=== PATIENT | female | born 1970 | race Caucasian/White ===

== ENCOUNTER 2018-12-29 18:24 | Emergency (ER) | payer BC, OTHER ==
--- NOTE | 2018-12-29 20:49 | ED ---
Lower Extremity - HPI Summary HPI Summary: Patient complains of right ankle pain status post mechanical fall today. Patient is ambulatory. Denies any other pain injury or symptoms. - History of Current Complaint Chief Complaint: EDExtremityLower Stated Complaint: HURT RT ANKLE PER PT Time Seen by Provider: 12/29/18 20:04 Hx Obtained From: Patient Mechanism Of Injury: Twisted Onset of Pain: Immediate Onset/Duration: Hours Severity Initially: Moderate Severity Currently: Moderate Pain Intensity: 5 Pain Scale Used: 0-10 Numeric Timing: Constant Location: Is Discrete @ Character Of Pain: Aching, Throbbing Associated Signs And Symptoms: Positive: Swelling Aggravating Factor(s): Weight Bearing Alleviating Factor(s): Rest, Elevation Able to Bear Weight: Yes - Allergies/Home Medications Allergies/Adverse Reactions: Allergies Allergy/AdvReac Type Severity Reaction Status Date / Time MS Penicillins [Penicillins] Allergy Rash Verified 09/26/16 12:15 PMH/Surg Hx/FS Hx/Imm Hx Endocrine/Hematology History: Denies: Hx Anticoagulant Therapy Cardiovascular History: Denies: Hx Pacemaker/ICD History: Denies: Hx Dialysis Sensory History: Denies: Hx Legally Blind Opthamlomology History: Denies: Hx Eye Prosthesis EENT History: Denies: Hx Deafness Neurological History: Denies: Hx Developmental Delay Infectious Disease History: No Infectious Disease History: Denies: Traveled Outside the [place] in Last 30 Days - Family History Known Family History: Positive: Non-Contributory - Social History Alcohol Use: None Substance Use Type: Reports: None Smoking Status (MU): Never Smoked Tobacco Review of Systems Constitutional: Negative Eyes: Negative ENT: Negative Cardiovascular: Negative Respiratory: Negative Gastrointestinal: Negative Genitourinary: Negative Musculoskeletal: Other Skin: Negative Neurological: Negative Psychological: Normal All Other Systems Reviewed And Are Negative: Yes Physical Exam - Summary Physical Exam Summary: Very minimal swelling to right ankle just distal to the lateral malleolus. No ecchymosis, erythema, deformity noted to right ankle and foot. Nontender. PMS intact distally. No pain with palpation of right foot. Triage Information Reviewed: Yes Vital Signs On Initial Exam: Initial Vitals Temp Pulse Resp BP Pulse Ox 98.2 F 80 16 119/79 98 12/29/18 18:31 12/29/18 18:31 12/29/18 18:31 12/29/18 18:31 12/29/18 18:31 Vital Signs Reviewed: Yes Appearance: Positive: Well-Appearing Skin: Positive: Warm Head/Face: Positive: Normal Head/Face Inspection Eyes: Positive: Normal Neck: Positive: Supple Respiratory/Lung Sounds: Positive: Clear to Auscultation Cardiovascular: Positive: Normal Abdomen Description: Positive: Nontender Musculoskeletal: Positive: Normal Neurological: Positive: Normal Psychiatric: Positive: Normal AVPU Assessment: Alert - Portal Coma Scale Best Eye Response: 4 - Spontaneous Best Motor Response: 6 - Obeys Commands Best Verbal Response: 5 - Oriented Coma Scale Total: 15 Diagnostics - Vital Signs Vital Signs Temp Pulse Resp BP Pulse Ox 12/29/18 18:31 98.2 F 80 16 119/79 98 - Laboratory Lab Statement: Any lab studies that have been ordered have been reviewed, and results considered in the medical decision making process. Lower Extremity Course/Dx - Course Course Of Treatment: Patient complains of right ankle pain status post mechanical fall today. Patient is ambulatory. Denies any other pain injury or symptoms. Vital signs within normal limits. X-ray of right ankle and right foot negative for fracture. Gel ankle splint administered by nurse. Patient ambulatory with brace. - Diagnoses Provider Diagnoses: Ankle sprain Discharge - Sign-Out/Discharge Documenting (check all that apply): Patient Departure Patient Received Moderate/Deep Sedation with Procedure: No - Discharge Plan Condition: Stable Disposition: HOME Patient Education Materials: Ankle Sprain (ED), Ankle Stirrup Splint (ED) Referrals: Armand Mcnulty MD [Primary Care Provider] - Additional Instructions: Ice, rest and ibuprofen for ankle pain. Weightbearing as tolerated. Use ankle brace to help support ankle while healing. If symptoms persist more than a week follow-up with orthopedics Dr. Kay for further evaluation. - Billing Disposition and Condition Condition: STABLE Disposition: Home
[2018-12-29 21:04] VITALS: BP 101/66
== END 2018-12-29 21:03 | disposition home or self-care (01) ==
LOC: ED 18:24
DX: S93.401A Sprain of unspecified ligament of right ankle, initial encounter (principal); X50.1XXA Overexertion from prolonged static or awkward postures, initial encounter; Y92.9 Unspecified place or not applicable; Z88.0 Allergy status to penicillin
CPT/HCPCS: 99282

== ENCOUNTER 2024-05-09 11:34 | Observation (INO) ==
[2024-05-09] MEDS: LACTATED RINGERS IV ONE (11:40)
[2024-05-09 12:10] LABS: ABS Basophils 0.1 10^3/uL (0.0-0.1); ABS Monocytes 0.8 10^3/uL (0.0-0.9); ABS Neutrophils 7.4 10^3/uL (1.5-7.6); ABS Nucleated RBC 0.01 10^3/ul; Eosinophil % 0.1 %; Hematocrit 41.9 % (35-45); Hemoglobin 14.3 g/dL (11.5-14.3); Lymphocyte % 19.4 %; Mean Corpuscular Hemoglobin 29.6 pg (27-33); Mean Corpuscular Hgb Conc 34.2 g/dL (31-36); Mean Corpuscular Volume 86.7 fL (80-97); Mean Platelet Volume 7.9 fL (7.5-11.2); Nucleated Red Blood Cells % 0.1 %/100WBC (0.0-0.8); Platelet Count 274 10^3/uL (150-450); Red Blood Count 4.83 10^6/uL (3.63-4.92); Red Cell Distribution Width 13.6 % (12-17); White Blood Count 10.3 10^3/uL (3.8-11.8)
[2024-05-09 12:22] LABS: Activated Partial Thrombo Time 26.5 seconds (26.0-38.0); INR 1.07 (0.85-1.14)
[2024-05-09 12:29] LABS: Albumin 4.2 g/dL (3.2-5.2); Albumin/Globulin Ratio 1.4 (1-3); C Reactive Protein 94.59 mg/L (<8.01); Calcium 9.4 mg/dL (8.6-10.3); Creatinine, Serum 1.02 mg/dL (0.51-0.95); Potassium 3.6 mmol/L (3.5-5.0); Total Bilirubin 1.2 mg/dL (0.2-1.0); Total Protein 7.2 g/dL (6.4-8.9); eGFR CKD-EPI 65.4 (>60)
[2024-05-09] MEDS: Ondansetron 4 mg VIAL 2 MG/ML 2 ml VIAL IV ONE (12:31)
[2024-05-09] MEDS: Acetaminophen IV 1 GM/100ML 1,000 MG/100 ML BAG IV ONE (12:31)
[2024-05-09 13:19] LABS: Urine Appearance Clear; Urine Bilirubin Negative (Negative); Urine Blood 2+ (Negative); Urine Color Yellow; Urine Glucose Negative (Negative); Urine Ketones 3+ (Negative); Urine Nitrite Negative (Negative); Urine Protein 1+ (>=30 mg/dL) (Negative); Urine Specific Gravity 1.018 (1.002-1.030); Urine Urobilinogen Negative (Negative); Urine pH 8.5 (5.0-8.0)
[2024-05-09 13:25] LABS: Urine Bacteria Absent /HPF (Absent); Urine Red Blood Cell 3+(>10/hpf) /HPF (0-Trace); Urine Squamous Epithelial Cell Present /HPF (Absent); Urine Transitional Epithelial Present /HPF (Absent); Urine White Blood Cell 3+(>20/hpf) /HPF (0-Trace)
[2024-05-09 13:42] LABS: High Sensitivity Troponin 1 Hr < 3 pg/mL (<15)
[2024-05-09] MEDS: Ciprofloxacin 400mg IVPREMIX 400 MG/200 ML BAG IVPB ONE (14:13)
[2024-05-09] MEDS: DOXYcycline 100 MG in NS 0.9% 250 ml 250 ML IVPB ONE (15:55)
[2024-05-09] MEDS ORDERED: Ondansetron 4 mg VIAL 2 MG/ML 2 ml VIAL IV PRN (17:10)
[2024-05-09 18:05] LABS: Magnesium 1.9 mg/dL (1.9-2.7)
[2024-05-09] MEDS: Lactated Ringers 1000 ml BAG 1,000 ML IV SCH (18:18)
[2024-05-09] MEDS: Enoxaparin 40 MG/0.4 ML SYR SUBCUT SCH (18:19)
[2024-05-09] MEDS: DOXYcycline 100 MG in NS 0.9% 250 ml 250 ML IVPB SCH (18:25)
[2024-05-10] MEDS ORDERED: Ciprofloxacin 400mg IVPREMIX 400 MG/200 ML BAG IVPB SCH ×2 (02:00→04:00)
[2024-05-10] MEDS: Ciprofloxacin 400mg IVPREMIX 400 MG/200 ML BAG IVPB SCH (02:13)
[2024-05-10] MEDS: DOXYcycline 100 MG in NS 0.9% 250 ml 250 ML IVPB SCH (03:29)
[2024-05-10] MEDS: Lactated Ringers 1000 ml BAG 1,000 ML IV SCH (05:53)
[2024-05-10 06:00] LABS: Hematocrit 28.8 % (35-45); Mean Corpuscular Hgb Conc 34.8 g/dL (31-36); Mean Corpuscular Volume 86.4 fL (80-97); Mean Platelet Volume 8.3 fL (7.5-11.2); Platelet Count 147 10^3/uL (150-450); Red Blood Count 3.34 10^6/uL (3.63-4.92); Red Cell Distribution Width 13.1 % (12-17); White Blood Count 6.4 10^3/uL (3.8-11.8)
[2024-05-10 06:19] LABS: Albumin/Globulin Ratio 1.4 (1-3); Calcium 7.7 mg/dL (8.6-10.3); Creatinine, Serum 0.76 mg/dL (0.51-0.95); Globulin 2.1 g/dL (2-4); Potassium 3.7 mmol/L (3.5-5.0); Total Bilirubin 0.4 mg/dL (0.2-1.0); Total Protein 5.1 g/dL (6.4-8.9); eGFR CKD-EPI 93.1 (>60)
[2024-05-10 07:33] LABS: ABS Basophils 0.1 10^3/uL (0.0-0.1); ABS Eosinophils 0.1 10^3/uL (0.0-0.5); ABS Lymphocytes 2.8 10^3/uL (1.0-4.8); ABS Monocytes 0.9 10^3/uL (0.0-0.9); ABS Neutrophils 2.6 10^3/uL (1.5-7.6); Anisocytosis 1+; Eosinophil % 1.3 %; Lymphocyte % 42.9 %
[2024-05-10 09:21] LABS: TSH Ultra Thyroid Stim Horm 2.65 mcIU/mL (0.34-5.60)
[2024-05-10 09:29] LABS: Ferritin 297.1 ng/mL (11-307)
[2024-05-10 09:32] LABS: Folate 18.55 ng/mL (5.90-24.80)
[2024-05-10 20:40] LABS: RBC Parasite Smear No Parasites Seen (No Parasite)
[2024-05-11 05:59] LABS: Hematocrit 33.2 % (35-45); Hemoglobin 11.4 g/dL (11.5-14.3); Mean Corpuscular Hemoglobin 29.8 pg (27-33); Mean Corpuscular Hgb Conc 34.4 g/dL (31-36); Mean Corpuscular Volume 86.6 fL (80-97); Mean Platelet Volume 8.5 fL (7.5-11.2); Platelet Count 228 10^3/uL (150-450); Red Blood Count 3.83 10^6/uL (3.63-4.92); Red Cell Distribution Width 13.5 % (12-17); White Blood Count 7.3 10^3/uL (3.8-11.8)
[2024-05-11 06:21] LABS: Calcium 8.4 mg/dL (8.6-10.3); Creatinine, Serum 0.86 mg/dL (0.51-0.95); Potassium 4.4 mmol/L (3.5-5.0); eGFR CKD-EPI 80.2 (>60)
[2024-05-11 07:09] LABS: Albumin 3.4 g/dL (3.2-5.2); Albumin/Globulin Ratio 1.4 (1-3); C Reactive Protein 48.34 mg/L (<8.01); Direct Bilirubin 0.1 mg/dL (0.03-0.18); Globulin 2.5 g/dL (2-4); Indirect Bilirubin 0.3 mg/dL (0.3-1.0); Total Bilirubin 0.4 mg/dL (0.2-1.0); Total Protein 5.9 g/dL (6.4-8.9)
[2024-05-11 07:59] LABS: ABS Basophils 0.1 10^3/uL (0.0-0.1); ABS Eosinophils 0.1 10^3/uL (0.0-0.5); ABS Lymphocytes 3.8 10^3/uL (1.0-4.8); ABS Monocytes 0.7 10^3/uL (0.0-0.9); ABS Neutrophils 2.5 10^3/uL (1.5-7.6); ABS Nucleated RBC 0.01 10^3/ul; Anisocytosis 1+; Eosinophil % 1.9 %; Lymphocyte % 52.8 %; Nucleated Red Blood Cells % 0.1 %/100WBC (0.0-0.8)
[2024-05-11 10:11] VITALS: BP 94/69
[2024-05-11 19:37] LABS: Anaplasma phagocytophilum Positive (Negative); B. miyamotoi PCR, B Negative (Negative); Babesia divergens/MO-1 Negative (Negative); Babesia ducani Negative (Negative); Ehrlichia chaffeensis Negative (Negative); Ehrlichia ewingii/canis Negative (Negative); Ehrlichia muris eauclairensis Negative (Negative)
== END 2024-05-11 11:10 | disposition home or self-care (01) ==
LOC: EDHOLD 11:34 → ED 11:34 → MED 19:53
PROVIDERS: ADMIT Internal Medicine; ATTEND Internal Medicine